=== PATIENT | female | born 1985 | race Caucasian/White ===

== ENCOUNTER 2017-07-15 07:23 | Inpatient (IN) | payer OTHER ==
[2017-07-15] VITALS (14 sets, daily range): BP systolic 99–126; BP diastolic 55–75
[~2017-07-15] VITALS: Ht 157.5 cm; Wt 82.1 kg
[2017-07-15 09:04] LABS: EOSINOPHIL (%) 0.3 % (0-5); HEMATOCRIT 33.1 % (36.0-46.0); IMMATURE GRANULOCYTE (%) 0.3 % (0.0-0.7); INSTRUMENT ABS NEUTROPHIL CT 9.2 K/uL; LYMPHOCYTE COUNT 1.9 K/uL (1.0-2.8); MCH 28.1 PG (29.0-34.0); MCHC 32.6 G/DL (30.0-36.0); MCV 86.2 FL (83-99); MEAN PLAT.VOLUME 13.7 uM^3 (9.5-12.4); MONOCYTE (%) 6.3 % (3-12); MONOCYTE COUNT 0.8 K/uL (0-0.8); NEUTROPHIL (%) 77.1 % (45-76); NEUTROPHIL COUNT 9.2 K/uL (1.8-6.4); PLATELET COUNT 131 K/uL (156-360); RBC DIS.WIDTH-CV 14.6 % (11.8-14.6); RBC DIS.WIDTH-SD 45.2 % (39-53); RED BLOOD COUNT 3.84 M/uL (3.80-5.20); WHITE BLOOD COUNT 11.9 K/uL (4.1-10.2)
[2017-07-15] MEDS ORDERED: MOTRIN800 MG PO (19:44)
[2017-07-16 00:08] VITALS: BP 121/60
[2017-07-16 08:14] VITALS: BP 119/70
[2017-07-16 15:10] VITALS: BP 116/63
== END 2017-07-16 22:20 | disposition home or self-care (01) | DRG 775 ==
LOC: LDRP-OP 07:23 → 2WEST 07:24 → LDRP-OP 14:37 → 2WEST 18:36 → LDRP-OP 08-05 10:40
PROVIDERS: Obstetrics & Gynecology
DX: O48.0 Post-term pregnancy (principal); Z3A.41 41 weeks gestation of pregnancy; O99.214 Obesity complicating childbirth; E66.9 Obesity, unspecified; Z37.0 Single live birth; Z68.31 Body mass index [BMI] 31.0-31.9, adult
CPT/HCPCS: 85025; C1755; J3010; J7120